=== PATIENT | male | born 1980 | race Hispanic/Latino ===

== ENCOUNTER 2018-05-06 13:24 | Emergency (ER) | payer OTHER ==
[2018-05-06] MEDS ORDERED: Ketorolac Tromethamine 30 MG/ML VIAL ONE (14:03)
== END 2018-05-06 14:27 | disposition home or self-care (01) ==
LOC: SCSER 13:24
DX: M54.41 Lumbago with sciatica, right side (principal); I10 Essential (primary) hypertension; M19.90 Unspecified osteoarthritis, unspecified site
CPT/HCPCS: 96372; J1885